=== PATIENT | female | born 1975 | race Caucasian/White ===

== ENCOUNTER → 2016-07-17 | Outpatient (CLI) | payer OTHER ==
[2014-12-26 14:37] VITALS: BP 112/69
[~2016-07-17] MED LIST: ALPR1TAB6 PO; DEXT30CA6 PO; DICY10CA3 PO; FEXO180T81 PO; HYDR-2666 PO; OXYC-323 PO
--- NOTE | 2016-07-17 15:37 | KCIC ---
PROCEDURE MRI right shoulder without contrast dated 07/17/2016. HISTORY Right arm pain and decreased range of motion. TECHNIQUE Routine multiplanar multisequence MR imaging performed. COMPARISON None. FINDINGS Intermediate T2 signal throughout the supraspinatus and infra spinatus portions of the rotator cuff. No full thickness tear or retracted tear. Mild bursal surface fraying of the anterior supraspinatus footplate. The subscapularis is intact. Mild hypertrophic change of the acromioclavicular joint. Mild undersurface irregularity of the acromion. Trace amount of subacromial/subdeltoid bursal fluid. Acromion type 2 morphology. Mild increased signal within the substance of the long head biceps tendon proximally. Extra-articular portion courses within the bicipital groove. Biceps anchor intact. Mild hypertrophic change of the glenohumeral joint. Mild thinning of the glenoid articular cartilage. No apparent labral tear or paralabral cyst. No glenohumeral joint effusion or loose body. Suprascapular and spinoglenoid notches are clear. No significant muscle edema or muscle atrophy. IMPRESSION - Mild rotator cuff tendinopathy with no evidence of full-thickness tear. - Mild proximal biceps tendinosis. - Mild AC joint arthropathy. 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 No apparent labral tear. Electronically signed by: Kory Olivas (Jul 17, 2016 15:35:43)
== END | disposition home or self-care (01) ==
LOC: KCIC MRI 14:33
PROVIDERS: ATTEND Family Medicine
DX: M75.21 Bicipital tendinitis, right shoulder (principal); M19.011 Primary osteoarthritis, right shoulder
CPT/HCPCS: 73221

== ENCOUNTER → 2017-12-12 | Outpatient (CLI) | payer OTHER | END | disposition home or self-care (01) | LOC: KCIC MRI 14:29 | DX: M50.323 Other cervical disc degeneration at C6-C7 level (principal); M47.892 Other spondylosis, cervical region; M25.78 Osteophyte, vertebrae | CPT/HCPCS: 72141 ==